=== PATIENT | female | born 1980 | race Caucasian/White ===

== ENCOUNTER 2022-09-05 16:16 | Emergency (ER) | payer OTHER ==
[~2022-09-05] VITALS: Ht 175.3 cm; Wt 59.1 kg
[2022-09-05] MEDS ORDERED: SODIUM CHLORIDE 0.9% 1,000 ML IV ONE (17:45)
[2022-09-05 17:48] LABS: BASOPHILS % (AUTO) 0.6 % (0.0-2.0); HEMATOCRIT 34.5 % (36-46); HEMOGLOBIN 11.5 g/dL (12.0-16.0); LYMPHOCYTES # (AUTO) 2.3 K/uL (1.0-4.8); LYMPHOCYTES % (AUTO) 29.1 % (22.0-44.0); MEAN CORPUSCULAR HEMOGLOBIN 31.2 pg (26.0-34.0); MEAN CORPUSCULAR HGB CONC 33.2 G/dL (31.0-37.0); MEAN CORPUSCULAR VOLUME 94 fL (80-100); MONOCYTES # (AUTO) 0.5 K/uL (0.1-1.0); MONOCYTES % (AUTO) 6.4 % (2.0-9.0); NEUTROPHILS % (AUTO) 62.9 % (40.0-70.0); PLATELET COUNT (AUTO) 313 K/uL (150-450); RED BLOOD CELL COUNT(AUTO) 3.67 MIL/uL (4.00-5.20); RED CELL DISTRIBUTION WIDTH 13.5 % (11.5-14.5)
[2022-09-05 18:48] LABS: ANION GAP 9 mmol/L (8-16); CALCIUM, TOTAL 8.4 mg/dL (8.8-10.5); CARBON DIOXIDE 25 mmol/L (22-29); CHLORIDE 108 mmol/L (98-107); CREATININE 0.76 mg/dL (0.60-1.30); GLOMERULAR FILTR. RATE CALC > 60 mL/min (>60); GLUCOSE,RANDOM 105 mg/dL (70-110); POTASSIUM 3.4 mmol/L (3.5-5.1); SODIUM SERUM 142 mmol/L (136-145); UREA NITROGEN, BLOOD 7 mg/dL (7-18)
[2022-09-05 19:01] LABS: ALANINE AMINOTRANSFERASE 45 U/L (12-78); ALBUMIN 3.5 g/dL (3.4-5.0); ALKALINE PHOSPHATASE 87 U/L (46-116); ASPARTATE AMINOTRANSFERASE 35 U/L (15-37); BILIRUBIN,TOTAL 0.3 mg/dL (0.1-1.0); TOTAL PROTEIN, SERUM 7.6 g/dL (6.4-8.2)
[2022-09-05 21:40] VITALS: BP 112/66
== END 2022-09-05 21:41 | disposition home or self-care (01) ==
LOC: EDBD 16:16 → EMS 16:16
DX: F10.129 Alcohol abuse with intoxication, unspecified (principal); Z86.59 Personal history of other mental and behavioral disorders; Y90.8 Blood alcohol level of 240 mg/100 ml or more
CPT/HCPCS: 99283; 96360; 80053; 85025; 36415; G0480; J7030

== ENCOUNTER 2022-09-29 12:25 | Inpatient (IN) | payer MEDICARE, MEDICAID ==
[~2022-09-29] VITALS: Ht 162.6 cm; Wt 59.6 kg
[2022-09-29] MEDS ORDERED: INFLUENZA VIRUS VACCINE QVS 2022-23 (6MO+)/PF 60 MCG/0.5 ML SYRINGE IM. ONE (15:45)
[2022-09-29] MEDS ORDERED: PNEUMOCOCCAL VACCINE POLYVALENT 0.5 ML VIAL [PPSV23] IM. ONE (15:45)
[2022-09-29 17:47] VITALS: BP 109/67
[2022-09-30] MEDS ORDERED: CloNIDine HCL 0.1 MG TABLET PO PRN (05:45)
[2022-09-30] MEDS ORDERED: OMEPRAZOLE 20 MG CAPSULE PO PRN (05:45)
[2022-09-30] MEDS ORDERED: BACITRACIN 28 GM OINTMENT TP PRN (05:45)
[2022-09-30] MEDS ORDERED: PETROLATUM,WHITE 28 GM JELLY TP PRN (05:45)
[2022-09-30] MEDS ORDERED: BENZOCAINE/MENTHOL LOZENGE PO PRN (05:45)
[2022-09-30] MEDS ORDERED: LOPERAMIDE HCL 2 MG CAPSULE PO PRN (05:45)
[2022-09-30] MEDS ORDERED: ONDANSETRON HCL 4 MG TABLET PO PRN (05:45)
[2022-09-30] MEDS ORDERED: DOCUSATE SODIUM 100 MG CAPSULE PO PRN (05:45)
[2022-09-30] MEDS ORDERED: MAG HYDROX/AL HYDROX/SIMETH ES 30 ML SUSPENSION UDCUP PO PRN (05:45)
[2022-09-30] MEDS ORDERED: MAGNESIUM HYDROXIDE SUSPENSION 30 ML UDCUP PO PRN (05:45)
[2022-09-30] MEDS ORDERED: IBUPROFEN 600 MG TABLET PO PRN (05:45)
[2022-09-30] MEDS ORDERED: ACETAMINOPHEN 325 MG TABLET PO PRN (05:45)
[2022-09-30] MEDS ORDERED: ALBUTEROL SULFATE HFA 90 MCG/PUFF 8 GM INHALER IH PRN (05:45)
[2022-09-30 07:39] LABS: BASOPHILS % (AUTO) 0.4 % (0.0-2.0); HEMATOCRIT 35.8 % (36-46); HEMOGLOBIN 12.1 g/dL (12.0-16.0); LYMPHOCYTES # (AUTO) 1.4 K/uL (1.0-4.8); LYMPHOCYTES % (AUTO) 19.9 % (22.0-44.0); MEAN CORPUSCULAR HEMOGLOBIN 31.3 pg (26.0-34.0); MEAN CORPUSCULAR HGB CONC 33.6 G/dL (31.0-37.0); MEAN CORPUSCULAR VOLUME 93 fL (80-100); MONOCYTES # (AUTO) 0.6 K/uL (0.1-1.0); MONOCYTES % (AUTO) 9.1 % (2.0-9.0); NEUTROPHILS # (AUTO) 4.8 K/uL (1.8-7.7); NEUTROPHILS % (AUTO) 68.6 % (40.0-70.0); PLATELET COUNT (AUTO) 294 K/uL (150-450); RED BLOOD CELL COUNT(AUTO) 3.86 MIL/uL (4.00-5.20)
[2022-09-30 07:55] LABS: HEMOGLOBIN A1C 4.6 % (3.8-5.6)
[2022-09-30 08:13] LABS: ALANINE AMINOTRANSFERASE 28 U/L (12-78); ALKALINE PHOSPHATASE 63 U/L (46-116); ANION GAP 7 mmol/L (8-16); ASPARTATE AMINOTRANSFERASE 23 U/L (15-37); BILIRUBIN,TOTAL 0.2 mg/dL (0.1-1.0); CALCIUM, TOTAL 8.7 mg/dL (8.8-10.5); CARBON DIOXIDE 26 mmol/L (22-29); CHLORIDE 106 mmol/L (98-107); CHOL/HDL RATIO 2.1 (3.9-5.7); CHOLESTEROL 129 mg/dL (131-200); CREATININE 0.72 mg/dL (0.60-1.30); GLUCOSE,RANDOM 96 mg/dL (70-110); HDL CHOLESTEROL 62 mg/dL (40-60); LDL CHOL (CALC.) 60 mg/dL (0-130); POTASSIUM 4.1 mmol/L (3.5-5.1); SODIUM SERUM 139 mmol/L (136-145); THYROID STIMULATING HORMONE 0.49 uIU/mL (0.36-3.74); TOTAL PROTEIN, SERUM 7.1 g/dL (6.4-8.2); TRIGLYCERIDES 33 mg/dL (15-150); UREA NITROGEN, BLOOD 14 mg/dL (7-18)
[2022-09-30 08:15] LABS: GLOMERULAR FILTR. RATE CALC > 60 mL/min (>60)
[2022-09-30 08:19] VITALS: BP 122/82
[2022-09-30 11:13] LABS: APPEARANCE,URINE CLEAR (CLEAR); BILIRUBIN,URINE NEGATIVE (NEGATIVE); GLUCOSE, URINE (UA) NEGATIVE (NEGATIVE); KETONES,URINE NEGATIVE (NEGATIVE); LEUKOCYTE ESTERASE ,URINE SMALL (NEGATIVE); NITRATE,URINE NEGATIVE (NEGATIVE); OCCULT BLOOD,URINE TRACE (NEGATIVE); PROTEIN,URINE NEGATIVE (NEGATIVE); SPECIFIC GRAVITIY, URINE 1.021 (1.003-1.030); UROBILINOGEN,URINE <=1.0 mg/dL (<=1.0)
[2022-09-30 11:23] LABS: BACTERIA,URINE None Seen /HPF (None Seen); RBC,URINE 0-2 /HPF (0-2); SQUAMOUS EPITHELIAL CELL,UR Rare /LPF (None Seen)
[2022-09-30] MEDS: DIVALPROEX SODIUM 500 MG DR TABLET PO SCH (16:48)
[2022-09-30] MEDS: RisperiDONE 3 MG TABLET PO SCH (16:49)
[2022-09-30] MEDS: LITHIUM CARBONATE 300 MG CAPSULE PO SCH (16:49)
[2022-09-30 20:14] VITALS: BP 115/77
[2022-10-01 08:09] VITALS: BP 100/63
[2022-10-01] MEDS: DIVALPROEX SODIUM 500 MG DR TABLET PO SCH ×2 (08:18→16:19)
[2022-10-01] MEDS: LITHIUM CARBONATE 300 MG CAPSULE PO SCH ×2 (08:18→16:19)
[2022-10-01] MEDS: RisperiDONE 3 MG TABLET PO SCH ×2 (08:18→16:19)
[2022-10-01] MEDS: LORazepam 2 MG TABLET PO PRN (11:40)
[2022-10-01] MEDS: HALOPERIDOL 5 MG TABLET PO PRN (11:40)
[2022-10-01 20:04] VITALS: BP 95/60
[2022-10-02 08:18] VITALS: BP 106/60
[2022-10-02] MEDS: DIVALPROEX SODIUM 500 MG DR TABLET PO SCH ×2 (08:32→17:00)
[2022-10-02] MEDS: RisperiDONE 3 MG TABLET PO SCH ×2 (08:32→17:00)
[2022-10-02] MEDS: LITHIUM CARBONATE 300 MG CAPSULE PO SCH ×2 (08:32→17:00)
[2022-10-02] MEDS: BENZTROPINE MESYLATE 1 MG TABLET PO SCH ×2 (08:32→20:06)
[2022-10-02 22:44] VITALS: BP 112/65
[2022-10-03] MEDS: RisperiDONE 3 MG TABLET PO SCH ×3 (08:26→16:58)
[2022-10-03] MEDS: DIVALPROEX SODIUM 500 MG DR TABLET PO SCH ×2 (08:26→16:52)
[2022-10-03] MEDS: LITHIUM CARBONATE 300 MG CAPSULE PO SCH ×2 (08:26→16:52)
[2022-10-03] MEDS: BENZTROPINE MESYLATE 1 MG TABLET PO SCH ×2 (08:26→20:21)
[2022-10-03 09:43] VITALS: BP 99/68
[2022-10-03 20:00] VITALS: BP 106/71
[2022-10-03] MEDS: ZOLPIDEM TARTRATE 10 MG TABLET PO PRN (20:21)
[2022-10-04 08:15] VITALS: BP 100/61
[2022-10-04] MEDS: BENZTROPINE MESYLATE 1 MG TABLET PO SCH ×2 (08:32→20:39)
[2022-10-04] MEDS: DIVALPROEX SODIUM 500 MG DR TABLET PO SCH ×2 (08:32→16:38)
[2022-10-04] MEDS: LITHIUM CARBONATE 300 MG CAPSULE PO SCH ×2 (08:32→16:38)
[2022-10-04] MEDS: RisperiDONE 3 MG TABLET PO SCH ×2 (08:32→16:41)
[2022-10-04 20:41] VITALS: BP 97/59
[2022-10-05 07:31] LABS: LITHIUM 0.48 mmol/L (0.60-1.20)
[2022-10-05 08:00] VITALS: BP 106/72
[2022-10-05] MEDS: BENZTROPINE MESYLATE 1 MG TABLET PO SCH ×2 (08:18→20:11)
[2022-10-05] MEDS: LITHIUM CARBONATE 300 MG CAPSULE PO SCH ×2 (08:18→16:07)
[2022-10-05] MEDS: DIVALPROEX SODIUM 500 MG DR TABLET PO SCH ×2 (08:18→16:07)
[2022-10-05] MEDS: RisperiDONE 3 MG TABLET PO SCH ×2 (08:21→16:09)
[2022-10-05 20:51] VITALS: BP 109/66
[2022-10-06] MEDS: DIVALPROEX SODIUM 500 MG DR TABLET PO SCH ×2 (08:18→16:08)
[2022-10-06] MEDS: BENZTROPINE MESYLATE 1 MG TABLET PO SCH ×2 (08:19→20:11)
[2022-10-06] MEDS: LITHIUM CARBONATE 300 MG CAPSULE PO SCH ×2 (08:21→16:08)
[2022-10-06] MEDS: RisperiDONE 3 MG TABLET PO SCH ×2 (09:15→16:10)
[2022-10-06 09:24] VITALS: BP 160/90
[2022-10-06 20:25] VITALS: BP 119/72
[2022-10-07] MEDS: DIVALPROEX SODIUM 500 MG DR TABLET PO SCH ×2 (08:05→16:21)
[2022-10-07] MEDS: LITHIUM CARBONATE 300 MG CAPSULE PO SCH ×2 (08:05→16:21)
[2022-10-07] MEDS: BENZTROPINE MESYLATE 1 MG TABLET PO SCH ×2 (08:05→20:04)
[2022-10-07] MEDS: RisperiDONE 3 MG TABLET PO SCH ×2 (08:14→16:21)
[2022-10-07 08:20] VITALS: BP 101/67
[2022-10-07 16:00] VITALS: BP 109/62
[2022-10-07 20:20] VITALS: BP 106/64
[2022-10-08] MEDS: DIVALPROEX SODIUM 500 MG DR TABLET PO SCH ×2 (08:04→16:29)
[2022-10-08] MEDS: RisperiDONE 3 MG TABLET PO SCH ×2 (08:04→16:29)
[2022-10-08] MEDS: BENZTROPINE MESYLATE 1 MG TABLET PO SCH ×2 (08:04→20:41)
[2022-10-08] MEDS: LITHIUM CARBONATE 300 MG CAPSULE PO SCH ×2 (08:04→16:29)
[2022-10-08 08:22] VITALS: BP 118/79
[2022-10-08 09:26] LABS: GLUCOMETER DEV NAME(LOC) POC.BV
[2022-10-08] MEDS: ZOLPIDEM TARTRATE 10 MG TABLET PO PRN (20:41)
[2022-10-08 22:30] VITALS: BP 110/68
[2022-10-09 06:31] VITALS: BP 105/65
[2022-10-09] MEDS: LORazepam 2 MG TABLET PO PRN (06:32)
[2022-10-09] MEDS: HALOPERIDOL 5 MG TABLET PO PRN (06:32)
[2022-10-09] MEDS: BENZTROPINE MESYLATE 1 MG TABLET PO SCH ×2 (08:05→21:03)
[2022-10-09] MEDS: DIVALPROEX SODIUM 500 MG DR TABLET PO SCH ×2 (08:05→16:09)
[2022-10-09] MEDS: LITHIUM CARBONATE 300 MG CAPSULE PO SCH ×2 (08:05→16:09)
[2022-10-09] MEDS: RisperiDONE 3 MG TABLET PO SCH ×2 (08:05→16:09)
[2022-10-09 08:21] VITALS: BP 113/76
[2022-10-10] MEDS: LORazepam 2 MG TABLET PO PRN (02:06)
[2022-10-10] MEDS: HALOPERIDOL 5 MG TABLET PO PRN (02:07)
[2022-10-10] MEDS: RisperiDONE 3 MG TABLET PO SCH ×2 (08:12→16:01)
[2022-10-10] MEDS: LITHIUM CARBONATE 300 MG CAPSULE PO SCH ×2 (08:12→16:01)
[2022-10-10] MEDS: BENZTROPINE MESYLATE 1 MG TABLET PO SCH ×2 (08:12→20:06)
[2022-10-10] MEDS: DIVALPROEX SODIUM 500 MG DR TABLET PO SCH ×2 (08:12→16:01)
[2022-10-10 09:07] VITALS: BP 113/68
[2022-10-10 20:25] VITALS: BP 98/65
[2022-10-11 08:18] VITALS: BP 100/69
[2022-10-11] MEDS: DIVALPROEX SODIUM 500 MG DR TABLET PO SCH ×2 (08:22→17:06)
[2022-10-11] MEDS: BENZTROPINE MESYLATE 1 MG TABLET PO SCH ×2 (08:22→20:13)
[2022-10-11] MEDS: RisperiDONE 3 MG TABLET PO SCH ×2 (08:22→17:06)
[2022-10-11] MEDS: LITHIUM CARBONATE 300 MG CAPSULE PO SCH ×2 (08:22→17:06)
[2022-10-11 20:34] VITALS: BP 101/72
[2022-10-12] MEDS: HALOPERIDOL 5 MG TABLET PO PRN ×2 (03:34→09:04)
[2022-10-12] MEDS: BENZTROPINE MESYLATE 1 MG TABLET PO SCH ×2 (08:23→21:45)
[2022-10-12] MEDS: DIVALPROEX SODIUM 500 MG DR TABLET PO SCH ×2 (08:23→16:19)
[2022-10-12] MEDS: LITHIUM CARBONATE 300 MG CAPSULE PO SCH ×2 (08:23→16:19)
[2022-10-12] MEDS: RisperiDONE 3 MG TABLET PO SCH ×2 (08:24→16:19)
[2022-10-12 08:35] VITALS: BP 100/64
[2022-10-12 20:46] VITALS: BP 109/62
[2022-10-13 08:18] VITALS: BP 100/63
[2022-10-13] MEDS: DIVALPROEX SODIUM 500 MG DR TABLET PO SCH ×2 (09:00→17:00)
[2022-10-13] MEDS: BENZTROPINE MESYLATE 1 MG TABLET PO SCH ×2 (09:00→21:06)
[2022-10-13] MEDS: LITHIUM CARBONATE 300 MG CAPSULE PO SCH ×2 (09:00→17:00)
[2022-10-13] MEDS: RisperiDONE 3 MG TABLET PO SCH (09:00)
[2022-10-13] MEDS: RisperiDONE 4 MG TABLET PO SCH (17:00)
[2022-10-13 20:00] VITALS: BP 100/67
[2022-10-14 08:25] VITALS: BP 112/66
[2022-10-14] MEDS: RisperiDONE 4 MG TABLET PO SCH ×2 (09:06→16:05)
[2022-10-14] MEDS: BENZTROPINE MESYLATE 1 MG TABLET PO SCH (09:06)
[2022-10-14] MEDS: LITHIUM CARBONATE 300 MG CAPSULE PO SCH ×2 (09:06→16:05)
[2022-10-14] MEDS: DIVALPROEX SODIUM 500 MG DR TABLET PO SCH ×2 (09:06→16:06)
[2022-10-14] MEDS: TRIHEXYPHENIDYL HCL 5 MG TABLET PO SCH (16:06)
[2022-10-14 20:35] VITALS: BP 105/69
[2022-10-14] MEDS: LORazepam 2 MG TABLET PO PRN (21:40)
[2022-10-15] MEDS: LITHIUM CARBONATE 300 MG CAPSULE PO SCH ×2 (08:09→16:46)
[2022-10-15] MEDS: DIVALPROEX SODIUM 500 MG DR TABLET PO SCH ×2 (08:09→16:46)
[2022-10-15] MEDS: TRIHEXYPHENIDYL HCL 5 MG TABLET PO SCH ×2 (08:09→16:46)
[2022-10-15] MEDS: RisperiDONE 4 MG TABLET PO SCH ×2 (08:09→16:46)
[2022-10-15 08:18] VITALS: BP 100/62
[2022-10-16] MEDS: HALOPERIDOL 5 MG TABLET PO PRN (00:15)
[2022-10-16] MEDS: LORazepam 2 MG TABLET PO PRN (00:16)
[2022-10-16 00:17] VITALS: BP 107/67
[2022-10-16 08:26] LABS: GLUCOMETER DEV NAME(LOC) POC.BV
[2022-10-16 08:33] VITALS: BP 110/70
[2022-10-16] MEDS: DIVALPROEX SODIUM 500 MG DR TABLET PO SCH ×2 (08:48→16:15)
[2022-10-16] MEDS: TRIHEXYPHENIDYL HCL 5 MG TABLET PO SCH ×2 (08:48→16:15)
[2022-10-16] MEDS: RisperiDONE 4 MG TABLET PO SCH ×2 (08:48→16:15)
[2022-10-16] MEDS: LITHIUM CARBONATE 300 MG CAPSULE PO SCH ×2 (08:48→16:15)
[2022-10-16 22:00] VITALS: BP 112/70
[2022-10-17] MEDS: ZOLPIDEM TARTRATE 10 MG TABLET PO PRN (02:42)
[2022-10-17] MEDS: TRIHEXYPHENIDYL HCL 5 MG TABLET PO SCH ×2 (08:19→16:35)
[2022-10-17] MEDS: DIVALPROEX SODIUM 500 MG DR TABLET PO SCH ×2 (08:19→16:35)
[2022-10-17] MEDS: RisperiDONE 4 MG TABLET PO SCH ×2 (08:19→16:35)
[2022-10-17] MEDS: LITHIUM CARBONATE 300 MG CAPSULE PO SCH ×3 (08:19→16:35)
[2022-10-17 09:41] VITALS: BP 105/63
[2022-10-17 20:28] VITALS: BP 105/60
[2022-10-18 08:09] VITALS: BP 100/62
[2022-10-18] MEDS: RisperiDONE 4 MG TABLET PO SCH ×2 (08:26→16:31)
[2022-10-18] MEDS: DIVALPROEX SODIUM 500 MG DR TABLET PO SCH ×2 (08:26→16:31)
[2022-10-18] MEDS: LORazepam 2 MG TABLET PO PRN (08:26)
[2022-10-18] MEDS: LITHIUM CARBONATE 300 MG CAPSULE PO SCH ×3 (08:26→16:30)
[2022-10-18] MEDS: TRIHEXYPHENIDYL HCL 5 MG TABLET PO SCH ×2 (09:00→16:31)
[2022-10-18] MEDS ORDERED: RISP4TAB73 PO (10:18)
[2022-10-18] MEDS ORDERED: DIVA-112 PO (10:18)
[2022-10-18] MEDS ORDERED: TRIH5TAB4 PO (10:18)
[2022-10-18] MEDS ORDERED: LITH300C3 PO (10:18)
[2022-10-19 01:29] VITALS: BP 108/62
[2022-10-19 08:00] VITALS: BP 97/62
[2022-10-19] MEDS: TRIHEXYPHENIDYL HCL 5 MG TABLET PO SCH ×2 (08:57→16:35)
[2022-10-19] MEDS: DIVALPROEX SODIUM 500 MG DR TABLET PO SCH ×2 (08:57→16:35)
[2022-10-19] MEDS: RisperiDONE 4 MG TABLET PO SCH ×2 (08:57→16:35)
[2022-10-19] MEDS: LITHIUM CARBONATE 300 MG CAPSULE PO SCH ×3 (08:58→16:35)
[2022-10-19 12:55] VITALS: BP 106/70
[2022-10-19] MEDS: LORazepam 2 MG TABLET PO PRN (12:58)
[2022-10-19 21:59] VITALS: BP 110/65
[2022-10-20 08:00] VITALS: BP 95/61
[2022-10-20] MEDS: LITHIUM CARBONATE 300 MG CAPSULE PO SCH ×3 (08:30→16:17)
[2022-10-20] MEDS: RisperiDONE 4 MG TABLET PO SCH ×2 (08:30→16:17)
[2022-10-20] MEDS: TRIHEXYPHENIDYL HCL 5 MG TABLET PO SCH ×2 (08:30→16:16)
[2022-10-20] MEDS: DIVALPROEX SODIUM 500 MG DR TABLET PO SCH ×2 (08:30→16:17)
[2022-10-20 20:38] VITALS: BP 98/58
[2022-10-21] MEDS: LORazepam 2 MG TABLET PO PRN ×2 (00:33→08:02)
[2022-10-21] MEDS: HALOPERIDOL 5 MG TABLET PO PRN (00:33)
[2022-10-21] MEDS: RisperiDONE 4 MG TABLET PO SCH ×2 (08:02→16:20)
[2022-10-21] MEDS: TRIHEXYPHENIDYL HCL 5 MG TABLET PO SCH ×2 (08:02→16:20)
[2022-10-21] MEDS: LITHIUM CARBONATE 300 MG CAPSULE PO SCH ×3 (08:02→16:20)
[2022-10-21] MEDS: DIVALPROEX SODIUM 500 MG DR TABLET PO SCH ×2 (08:02→16:20)
[2022-10-21 08:15] VITALS: BP 109/67
[2022-10-21 21:09] VITALS: BP 112/69
[2022-10-22 08:00] VITALS: BP 108/63
[2022-10-22] MEDS: TRIHEXYPHENIDYL HCL 5 MG TABLET PO SCH ×2 (08:28→16:21)
[2022-10-22] MEDS: LORazepam 2 MG TABLET PO PRN ×3 (08:29→23:18)
[2022-10-22] MEDS: DIVALPROEX SODIUM 500 MG DR TABLET PO SCH ×2 (08:29→16:21)
[2022-10-22] MEDS: RisperiDONE 4 MG TABLET PO SCH ×2 (08:29→16:21)
[2022-10-22] MEDS: LITHIUM CARBONATE 300 MG CAPSULE PO SCH ×3 (08:29→16:21)
[2022-10-23 00:09] VITALS: BP 123/67
[2022-10-23 08:00] VITALS: BP 106/68
[2022-10-23] MEDS: TRIHEXYPHENIDYL HCL 5 MG TABLET PO SCH ×2 (08:00→16:08)
[2022-10-23] MEDS: RisperiDONE 4 MG TABLET PO SCH ×2 (08:00→16:07)
[2022-10-23] MEDS: DIVALPROEX SODIUM 500 MG DR TABLET PO SCH ×2 (08:00→16:08)
[2022-10-23] MEDS: LITHIUM CARBONATE 300 MG CAPSULE PO SCH ×3 (08:00→16:08)
[2022-10-23] MEDS: LORazepam 2 MG TABLET PO PRN (09:01)
[2022-10-23 11:56] LABS: GLUCOMETER DEV NAME(LOC) POC.BV
[2022-10-23 20:55] VITALS: BP 99/65
[2022-10-24] MEDS: LORazepam 2 MG TABLET PO PRN ×2 (01:46→08:59)
[2022-10-24 08:47] VITALS: BP 94/63
[2022-10-24] MEDS: RisperiDONE 4 MG TABLET PO SCH ×2 (08:59→16:24)
[2022-10-24] MEDS: DIVALPROEX SODIUM 500 MG DR TABLET PO SCH ×2 (08:59→16:24)
[2022-10-24] MEDS: LITHIUM CARBONATE 300 MG CAPSULE PO SCH ×3 (08:59→16:24)
[2022-10-24] MEDS: TRIHEXYPHENIDYL HCL 5 MG TABLET PO SCH ×2 (08:59→16:24)
[2022-10-24 20:25] VITALS: BP 100/62
[2022-10-25] MEDS: LORazepam 2 MG TABLET PO PRN ×3 (02:18→20:04)
[2022-10-25] MEDS: DIVALPROEX SODIUM 500 MG DR TABLET PO SCH ×2 (08:19→16:05)
[2022-10-25] MEDS: RisperiDONE 4 MG TABLET PO SCH ×2 (08:19→16:05)
[2022-10-25] MEDS: TRIHEXYPHENIDYL HCL 5 MG TABLET PO SCH ×2 (08:19→16:05)
[2022-10-25] MEDS: LITHIUM CARBONATE 300 MG CAPSULE PO SCH ×3 (08:19→16:05)
[2022-10-25 10:08] VITALS: BP 99/68
[2022-10-25 10:28] VITALS: BP 99/68
[2022-10-25 20:23] VITALS: BP 103/71
[2022-10-26 08:25] VITALS: BP 100/60
[2022-10-26] MEDS: TRIHEXYPHENIDYL HCL 5 MG TABLET PO SCH ×2 (08:33→16:39)
[2022-10-26] MEDS: RisperiDONE 4 MG TABLET PO SCH ×2 (08:34→16:39)
[2022-10-26] MEDS: DIVALPROEX SODIUM 500 MG DR TABLET PO SCH ×2 (08:34→16:39)
[2022-10-26] MEDS: LITHIUM CARBONATE 300 MG CAPSULE PO SCH ×3 (08:34→16:39)
[2022-10-26] MEDS: HALOPERIDOL 5 MG TABLET PO PRN (12:25)
[2022-10-27 02:22] VITALS: BP 108/63
[2022-10-27 08:36] VITALS: BP 105/63
[2022-10-27] MEDS: DIVALPROEX SODIUM 500 MG DR TABLET PO SCH ×2 (10:05→16:09)
[2022-10-27] MEDS: LITHIUM CARBONATE 300 MG CAPSULE PO SCH ×3 (10:05→16:09)
[2022-10-27] MEDS: TRIHEXYPHENIDYL HCL 5 MG TABLET PO SCH ×2 (10:05→16:09)
[2022-10-27] MEDS: RisperiDONE 4 MG TABLET PO SCH ×2 (10:05→16:09)
[2022-10-27] MEDS: LORazepam 2 MG TABLET PO PRN (16:13)
[2022-10-27 20:40] VITALS: BP 94/60
[2022-10-28 08:27] VITALS: BP 118/76
[2022-10-28] MEDS: LITHIUM CARBONATE 300 MG CAPSULE PO SCH ×3 (08:30→16:28)
[2022-10-28] MEDS: DIVALPROEX SODIUM 500 MG DR TABLET PO SCH ×2 (08:30→16:28)
[2022-10-28] MEDS: LORazepam 2 MG TABLET PO PRN (08:30)
[2022-10-28] MEDS: TRIHEXYPHENIDYL HCL 5 MG TABLET PO SCH ×2 (08:30→16:28)
[2022-10-28] MEDS: RisperiDONE 4 MG TABLET PO SCH ×2 (08:30→16:28)
[2022-10-28 20:06] VITALS: BP 110/70
[2022-10-29] MEDS: LORazepam 2 MG TABLET PO PRN ×3 (01:35→16:54)
[2022-10-29 08:20] VITALS: BP 100/60
[2022-10-29] MEDS: TRIHEXYPHENIDYL HCL 5 MG TABLET PO SCH ×2 (08:29→16:54)
[2022-10-29] MEDS: RisperiDONE 4 MG TABLET PO SCH ×2 (08:29→16:54)
[2022-10-29] MEDS: DIVALPROEX SODIUM 500 MG DR TABLET PO SCH ×2 (08:29→16:54)
[2022-10-29] MEDS: LITHIUM CARBONATE 300 MG CAPSULE PO SCH ×3 (08:29→16:54)
[2022-10-29 11:11] LABS: GLUCOMETER DEV NAME(LOC) POC.BV
[2022-10-29 20:00] VITALS: BP 96/60
[2022-10-30 08:15] VITALS: BP 106/64
[2022-10-30] MEDS: LITHIUM CARBONATE 300 MG CAPSULE PO SCH ×3 (09:02→16:35)
[2022-10-30] MEDS: DIVALPROEX SODIUM 500 MG DR TABLET PO SCH ×2 (09:02→16:35)
[2022-10-30] MEDS: TRIHEXYPHENIDYL HCL 5 MG TABLET PO SCH ×2 (09:02→16:35)
[2022-10-30] MEDS: RisperiDONE 4 MG TABLET PO SCH ×2 (09:02→16:35)
[2022-10-30 20:14] VITALS: BP 108/68
[2022-10-31] MEDS: RisperiDONE 4 MG TABLET PO SCH ×2 (08:20→16:14)
[2022-10-31] MEDS: DIVALPROEX SODIUM 500 MG DR TABLET PO SCH ×2 (08:20→16:14)
[2022-10-31] MEDS: LITHIUM CARBONATE 300 MG CAPSULE PO SCH ×3 (08:20→16:14)
[2022-10-31] MEDS: TRIHEXYPHENIDYL HCL 5 MG TABLET PO SCH ×2 (08:20→16:14)
[2022-10-31 08:29] VITALS: BP 100/63
[2022-10-31 20:35] VITALS: BP 109/62
[2022-11-01 08:19] VITALS: BP 100/61
[2022-11-01] MEDS: RisperiDONE 4 MG TABLET PO SCH ×2 (09:45→16:57)
[2022-11-01] MEDS: DIVALPROEX SODIUM 500 MG DR TABLET PO SCH ×2 (09:45→16:57)
[2022-11-01] MEDS: TRIHEXYPHENIDYL HCL 5 MG TABLET PO SCH ×2 (09:45→16:57)
[2022-11-01] MEDS: LITHIUM CARBONATE 300 MG CAPSULE PO SCH ×3 (09:45→16:57)
[2022-11-01] MEDS: HALOPERIDOL 5 MG TABLET PO PRN (14:22)
[2022-11-01 20:40] VITALS: BP 105/63
[2022-11-02] MEDS: DIVALPROEX SODIUM 500 MG DR TABLET PO SCH ×2 (08:17→16:47)
[2022-11-02] MEDS: TRIHEXYPHENIDYL HCL 5 MG TABLET PO SCH ×2 (08:17→16:47)
[2022-11-02] MEDS: RisperiDONE 4 MG TABLET PO SCH ×2 (08:17→16:47)
[2022-11-02] MEDS: LITHIUM CARBONATE 300 MG CAPSULE PO SCH ×3 (08:17→16:47)
[2022-11-02 08:31] VITALS: BP 100/63
[2022-11-02 20:10] VITALS: BP 103/68
[2022-11-03 04:14] VITALS: BP 110/66
[2022-11-03] MEDS: TRIHEXYPHENIDYL HCL 5 MG TABLET PO SCH ×2 (08:30→16:23)
[2022-11-03] MEDS: RisperiDONE 4 MG TABLET PO SCH ×2 (08:31→16:23)
[2022-11-03] MEDS: LITHIUM CARBONATE 300 MG CAPSULE PO SCH ×3 (08:31→16:23)
[2022-11-03] MEDS: DIVALPROEX SODIUM 500 MG DR TABLET PO SCH ×2 (08:31→16:23)
[2022-11-03 09:03] VITALS: BP 107/64
[2022-11-03 20:37] VITALS: BP 106/60
[2022-11-04 08:09] VITALS: BP 100/67
[2022-11-04] MEDS: RisperiDONE 4 MG TABLET PO SCH ×2 (08:19→16:25)
[2022-11-04] MEDS: TRIHEXYPHENIDYL HCL 5 MG TABLET PO SCH ×2 (08:19→16:25)
[2022-11-04] MEDS: LITHIUM CARBONATE 300 MG CAPSULE PO SCH ×3 (08:19→16:25)
[2022-11-04] MEDS: DIVALPROEX SODIUM 500 MG DR TABLET PO SCH ×2 (08:19→16:25)
[2022-11-04 20:26] VITALS: BP 116/66
[2022-11-05 08:30] VITALS: BP 117/69
[2022-11-05] MEDS: RisperiDONE 4 MG TABLET PO SCH ×2 (08:30→16:10)
[2022-11-05] MEDS: DIVALPROEX SODIUM 500 MG DR TABLET PO SCH ×2 (08:30→16:10)
[2022-11-05] MEDS: LITHIUM CARBONATE 300 MG CAPSULE PO SCH ×3 (08:30→16:10)
[2022-11-05] MEDS: TRIHEXYPHENIDYL HCL 5 MG TABLET PO SCH ×2 (08:30→16:10)
[2022-11-05 21:24] VITALS: BP 99/64
[2022-11-06] MEDS: DIVALPROEX SODIUM 500 MG DR TABLET PO SCH ×2 (08:07→17:03)
[2022-11-06] MEDS: RisperiDONE 4 MG TABLET PO SCH ×2 (08:07→17:03)
[2022-11-06] MEDS: TRIHEXYPHENIDYL HCL 5 MG TABLET PO SCH ×2 (08:07→17:03)
[2022-11-06] MEDS: LITHIUM CARBONATE 300 MG CAPSULE PO SCH ×3 (08:08→17:03)
[2022-11-06 08:11] LABS: GLUCOMETER DEV NAME(LOC) POC.BV
[2022-11-06 08:23] VITALS: BP 131/71
[2022-11-06] MEDS: HALOPERIDOL 5 MG TABLET PO PRN (15:54)
[2022-11-06 20:03] VITALS: BP 103/69
[2022-11-07] MEDS: DIVALPROEX SODIUM 500 MG DR TABLET PO SCH ×2 (08:14→16:43)
[2022-11-07] MEDS: RisperiDONE 4 MG TABLET PO SCH ×2 (08:14→16:43)
[2022-11-07] MEDS: TRIHEXYPHENIDYL HCL 5 MG TABLET PO SCH ×2 (08:14→16:43)
[2022-11-07] MEDS: LITHIUM CARBONATE 300 MG CAPSULE PO SCH ×3 (08:14→16:43)
[2022-11-07 08:36] VITALS: BP 103/57
[2022-11-07 17:06] VITALS: BP 112/65
[2022-11-07 20:11] VITALS: BP 103/63
[2022-11-08] MEDS: LITHIUM CARBONATE 300 MG CAPSULE PO SCH ×3 (08:30→16:34)
[2022-11-08] MEDS: RisperiDONE 4 MG TABLET PO SCH ×2 (08:30→16:34)
[2022-11-08] MEDS: TRIHEXYPHENIDYL HCL 5 MG TABLET PO SCH ×2 (08:30→16:34)
[2022-11-08] MEDS: DIVALPROEX SODIUM 500 MG DR TABLET PO SCH ×2 (08:30→16:34)
[2022-11-08 09:39] VITALS: BP 100/57
[2022-11-08] MEDS: HALOPERIDOL 5 MG TABLET PO PRN (13:26)
[2022-11-08 20:50] VITALS: BP 107/67
[2022-11-09] MEDS: RisperiDONE 4 MG TABLET PO SCH ×2 (08:05→16:48)
[2022-11-09] MEDS: LITHIUM CARBONATE 300 MG CAPSULE PO SCH ×3 (08:05→16:47)
[2022-11-09] MEDS: DIVALPROEX SODIUM 500 MG DR TABLET PO SCH ×2 (08:05→16:47)
[2022-11-09] MEDS: TRIHEXYPHENIDYL HCL 5 MG TABLET PO SCH ×2 (08:05→16:47)
[2022-11-09 08:55] VITALS: BP 100/99
[2022-11-09] MEDS: HALOPERIDOL 5 MG TABLET PO PRN (11:42)
[2022-11-09 20:43] VITALS: BP 105/62
[2022-11-10] MEDS: LITHIUM CARBONATE 300 MG CAPSULE PO SCH ×3 (08:16→16:13)
[2022-11-10] MEDS: TRIHEXYPHENIDYL HCL 5 MG TABLET PO SCH ×2 (08:16→16:13)
[2022-11-10] MEDS: DIVALPROEX SODIUM 500 MG DR TABLET PO SCH ×2 (08:16→16:13)
[2022-11-10] MEDS: RisperiDONE 4 MG TABLET PO SCH ×2 (08:16→16:13)
[2022-11-10 08:25] VITALS: BP 106/63
[2022-11-10 21:37] VITALS: BP 106/63
[2022-11-11] MEDS: HALOPERIDOL 5 MG TABLET PO PRN (01:49)
[2022-11-11] MEDS: LITHIUM CARBONATE 300 MG CAPSULE PO SCH ×2 (08:14→12:55)
[2022-11-11] MEDS: TRIHEXYPHENIDYL HCL 5 MG TABLET PO SCH (08:15)
[2022-11-11] MEDS: DIVALPROEX SODIUM 500 MG DR TABLET PO SCH (08:15)
[2022-11-11] MEDS: RisperiDONE 4 MG TABLET PO SCH (08:15)
[2022-11-11 08:34] VITALS: BP 100/61
[2022-11-11] MEDS ORDERED: DIVA-112 PO (12:11)
[2022-11-11] MEDS ORDERED: RISP4TAB73 PO (12:11)
[2022-11-11] MEDS ORDERED: LITH300C3 PO (12:11)
== END 2022-11-11 13:45 | disposition home or self-care (01) | DRG 885 ==
LOC: B3A 13:43
PROVIDERS: ADMIT Psychiatry & Neurology Psychiatry; ATTEND Psychiatry & Neurology Psychiatry
DX: F20.9 Schizophrenia, unspecified (principal); F32.A Depression, unspecified; F41.9 Anxiety disorder, unspecified; G47.00 Insomnia, unspecified; K59.00 Constipation, unspecified; Z20.822 Contact with and (suspected) exposure to COVID-19; Z91.199 Patient's noncompliance with other medical treatment and regimen due to unspecified reason; Z79.899 Other long term (current) drug therapy
CPT/HCPCS: 80053; 80061; 80164; 80178; 81001; 83036; 84439; 84443; 85025